=== PATIENT | female | born 1980 | race Caucasian/White ===

== ENCOUNTER 2020-11-30 09:06 | Outpatient (CLI) | payer OTHER ==
[2020-11-30 10:10] LABS: ALBUMIN 4.4 g/dL (3.2-5.5); ALBUMIN/GLOBULIN RATIO 1.6 (1.0-2.2); ALKALINE PHOSPHATASE 46 IU/L (42-121); ALT ALANINE AMINOTRANSFERASE 17 IU/L (10-60); AST ASPARTATE AMINOTRANSFERASE 21 IU/L (10-42); BILIRUBIN,TOTAL 0.7 mg/dL (0.2-1.0); BUN - BLOOD UREA NITROGEN 13 mg/dL (6-20); CALCIUM 9.4 mg/dL (8.5-10.3); CARBON DIOXIDE - CO2 26 mmol/L (21-32); CHLORIDE 101 mmol/L (101-111); CHOL/HDL RATIO 2.4 (<4.4); CHOLESTEROL 189 mg/dL; CREATININE 0.6 mg/dL (0.4-1.0); GFR - MDRD 110 (>89); GLUCOSE 100 mg/dL (70-100); HDL CHOLESTEROL 79 mg/dL; POTASSIUM 3.7 mmol/L (3.5-5.0); SODIUM 137 mmol/L (135-145); TOTAL PROTEIN 7.2 g/dL (6.7-8.2); TRIGLYCERIDES 33 mg/dL
[2020-11-30 12:21] LABS: ESTIMATED AVERAGE GLUCOSE 97 mg/dL (70-100)
--- OUTSIDE RECORDS SUMMARY | 2020-12-06 00:34 | EXTERNAL MEDICAL SUMMARY RPT | Continuity of Care Document ---
:1980 Demographics Phone Unavailable Preferred Language Unknown Marital Status Unknown Mormon Affiliation Unknown Race Unknown Ethnic Group Unknown Author Organization [facility] Address [address] [id number] Phone Care Team Providers Name Role Phone Rosie ZHOU, Unavailable Unavailable RBOE, Lindsey Bain, Unavailable Unavailable Problems date description facility 20201113 Alcohol use All 20201113 Complete Metabolic Panel All 20201113 Diabetes mellitus screening All 20201113 Encounter for removal of intrauterine c ontraceptive device All 20201113 Encounter for screening for lipoid diso rders All 20201113 Encounter for screening for malignant n eoplasm of cervix All 20201113 LIPID PANEL All 20201113 Polyp of cervix All 20201113 Procedure carried out on subject All 20201113 Tobacco smoking status NHIS All 20201113 Tobacco use and exposure All 20201113 Alcohol intake All 20201113 Cholesterol screening All 20201113 Details of drug misuse behavior All 20201113 Encounter for screening for diabetes me llitus All 20201113 Encounter for screening for nutritional disorder All 20201113 Encounter for screening mammogram for m alignant neoplasm of All breast 20201113 Exercise All 20201113 Glycohemoglobin (A1C) All 20201113 Health-related behavior All 20201113 Mucous polyp of cervix All 20201113 Never smoker All 20201113 Other screening mammogram All 20201113 Polyp of cervix uteri All 20201113 Removal of intrauterine contraceptive d evice done All 20201113 Screening for diabetes mellitus All 20201113 Screening for lipoid disorders All 20201113 Screening for malignant neoplasm of cer vix All 20201113 Screening for malignant neoplasms of th e cervix All 20201113 Screening for other and unspecified end ocrine, nutritional, All metabolic, and immunity disorders 20201113 Screening mammography All 20201113 THIN PREP PAP with HPV 30+YRS OLD All 20201113 TISSUE EXAM BY PATHOLOGIST, Level IV A ll 20201113 VITAMIN D, 25-OH TOTAL, [place] All 20201128 Encounter for insertion of intrauterine contraceptive device All 20201128 Encounter for other preprocedural exami nation All 20201128 Insertion of intrauterine contraceptive device done All 20201128 Other specified preoperative examinatio n All 20201128 Pre-surgery evaluation All [id number] Unspecified vitamin D deficiency All [id number] VITAMIN D, 25-OH TOTAL, [place] All 69477484 Vitamin D deficiency All 86275763 Vitamin D deficiency, unspecified All Medications date description facility [id number] CALCIUM CITRATE-VITAMIN D TABS All [id number] CALCIUM CITRATE-VITAMIN D TABS All 44382910 CHOLECALCIFEROL All Procedures date description facility 67799112 IUD REMOVAL All date description facility [id number] THIN PREP PAP with HPV 30+YRS OLD All date description facility [id number] TISSUE EXAM BY PATHOLOGIST, Level IV A ll date description facility [id number] Complete Metabolic Panel All date description facility 15294611 IUD REMOVAL All date description facility [id number] LIPID PANEL All date description facility [id number] VITAMIN D, 25-OH TOTAL, [place] All date description facility 41900205 Glycohemoglobin (A1C) All date description facility 02444406 THIN PREP PAP with HPV 30+YRS OLD All date description facility [id number] TISSUE EXAM BY PATHOLOGIST, Level IV A ll date description facility 20201128 IUD INSERTION All date description facility 20201128 POC CHORIONIC GONADOTROPIN ASSAY All date description facility 20201128 IUD, Intrauterine Copper Contraceptive (Paragard T380A) All Results test status date ordered by attending specimen yonathan e Human_papilloma_virus_ unknown 40754617 unknown unknown unknown identified_in_Unspecifi ed_specimen General_categories_Int unknown 76235037 unknown unknown unknown erpretation_of_Cervical _or_vaginal_smear_or_sc raping_by_Cyto_stain Human_Papillomavirus_t unknown 17026901 unknown unknown unknown est_result Human_papilloma_virus_ unknown 72740749 unknown unknown unknown 16_18_31_33_35_45_51_52 _56_DNA_Presence_in_Cer vix_by_Probe vaginal_Pap_smear_resu unknown 33111593 unknown unknown unknown lts Human_papilloma_virus_ unknown 75141544 unknown unknown unknown 16_and_18_and_31_33_35_ 39_45_51_52_56_58_59_66 _68_DNA_Interpretation_ in_Cervix Human_papilloma_virus_ unknown 58412915 unknown unknown unknown identified_in_Unspecifi ed_specimen General_categories_Int unknown 15291332 unknown unknown unknown erpretation_of_Cervical _or_vaginal_smear_or_sc raping_by_Cyto_stain Human_Papillomavirus_t unknown 86319979 unknown unknown unknown est_result Human_papilloma_virus_ unknown 00847123 unknown unknown unknown 16_18_31_33_35_45_51_52 _56_DNA_Presence_in_Cer vix_by_Probe vaginal_Pap_smear_resu unknown 28560473 unknown unknown unknown lts Human_papilloma_virus_ unknown 46732723 unknown unknown unknown 16_and_18_and_31_33_35_ 39_45_51_52_56_58_59_66 _68_DNA_Interpretation_ in_Cervix Choriogonadotropin_pre unknown 50275401 unknown unknown unknown gnancy_test_Presence_in _Urine human_chorionic_gonado unknown 92441298 unknown unknown unknown tropin_urine_qualitativ e_urine_pregnancy_test_ HEMOGLOBIN_A1c_ unknown 98716827 unknown unknown unknown T unknown 92408543 unknown unknown unknown ALBUMIN_GLOBULIN_RATIO unknown 39304122 unknown unknown unknown T unknown 64950825 unknown unknown unknown T unknown 78979246 unknown unknown unknown ALKALINE_PHOSPHATASE unknown 82766987 unknown unknown un known ALT_ALANINE_AMINOTRANS unknown 13024898 unknown unknown unknown FERASE T unknown 54091824 unknown unknown unknown T unknown 67746575 unknown unknown unknown T unknown 62328067 unknown unknown unknown BILIRUBIN_TOTAL unknown 22018866 unknown unknown unknown T unknown 91669398 unknown unknown unknown T unknown 02747973 unknown unknown unknown CHOL_HDL_RATIO unknown 65584288 unknown unknown unknown T unknown 48717862 unknown unknown unknown T unknown 84507769 unknown unknown unknown T unknown 91548297 unknown unknown unknown T unknown 79403961 unknown unknown unknown T unknown 04246219 unknown unknown unknown ESTIMATED_AVERAGE_GLUC unknown 33199338 unknown unknown unknown OSE T unknown 81757158 unknown unknown unknown T unknown 88017466 unknown unknown unknown GFR_-_MDRD unknown 17747642 unknown unknown unknown T unknown 36838060 unknown unknown unknown T unknown 39585823 unknown unknown unknown T unknown 72925785 unknown unknown unknown T unknown 30678578 unknown unknown unknown T unknown 24753452 unknown unknown unknown T unknown 70260663 unknown unknown unknown T unknown 31774186 unknown unknown unknown T unknown 53666959 unknown unknown unknown T unknown 75308851 unknown unknown unknown calcium_serum unknown 35595408 unknown unknown unknown chloride_serum unknown 72608080 unknown unknown unknown cholesterol_serum unknown 48505486 unknown unknown unkno wn albumin_globulin_ratio unknown 29329934 unknown unknown unknown _serum sodium_serum unknown 48206415 unknown unknown unknown Alanine_aminotransfera unknown 90916162 unknown unknown unknown se_Enzymatic_activity_v olume_in_Serum_or_Plasm a Albumin_Mass_volume_in unknown 98982834 unknown unknown unknown _Serum_or_Plasma Albumin_Globulin_Mass_ unknown 84617754 unknown unknown unknown Ratio_in_Serum_or_Plasm a Alkaline_phosphatase_E unknown 43165498 unknown unknown unknown nzymatic_activity_volum e_in_Blood creatinine_serum unknown 88033323 unknown unknown unknow n Estimated_Average_Gluc unknown 05510653 unknown unknown unknown ose Anion_gap_4_in_Serum_o unknown 13778287 unknown unknown unknown r_Plasma Aspartate_aminotransfe unknown 38913978 unknown unknown unknown rase_Enzymatic_activity _volume_in_Serum_or_Pla sma Bilirubin.total_Mass_v unknown 48643051 unknown unknown unknown olume_in_Serum_or_Plasm a albumin_serum unknown 08078579 unknown unknown unknown Calcium_Moles_volume_i unknown 83888551 unknown unknown unknown n_Serum_or_Plasma carbon_dioxide_serum_t unknown 10852613 unknown unknown unknown otal Chloride_Moles_volume_ unknown 98759828 unknown unknown unknown in_Serum_or_Plasma Cholesterol_in_HDL_Mas unknown 35541519 unknown unknown unknown s_volume_in_Serum_or_Pl asma_-_mg_dL Cholesterol_Mass_volum unknown 29457946 unknown unknown unknown e_in_Serum_or_Plasma_-_ mg_dL cholesterol_HDL_ratio_ unknown 22496330 unknown unknown unknown serum_percent Creatinine_Mass_volume unknown 69511739 unknown unknown unknown _in_Serum_or_Plasma Globulin_Mass_volume_i unknown 84253902 unknown unknown unknown n_Serum Glucose_Mass_volume_in unknown 10110713 unknown unknown unknown _Serum_or_Plasma cholesterol_HDL_ratio_ unknown 92554897 unknown unknown unknown serum_percent Triglyceride_Mass_volu unknown 03506181 unknown unknown unknown me_in_Serum_or_Plasma_- _mg_dL HDL_cholesterol_serum unknown 87649614 unknown unknown u nknown Glucose_mean_value_Mas unknown 28765808 unknown unknown unknown s_volume_in_Blood_Estim ated_from_glycated_hemo globin anion_gap_serum unknown 39224171 unknown unknown unknown hemoglobin_A1C_blood_a unknown 47046533 unknown unknown unknown s_of_total_hemoglobin Protein_Mass_volume_in unknown 79037169 unknown unknown unknown _Serum_or_Plasma Sodium_Moles_volume_in unknown 33161988 unknown unknown unknown _Serum_or_Plasma alkaline_phosphatase_s unknown 18480028 unknown unknown unknown court globulin_serum unknown 70968150 unknown unknown unknown Urea_nitrogen_Mass_vol unknown 33747162 unknown unknown unknown ume_in_Serum_or_Plasma potassium_blood unknown 67092067 unknown unknown unknown blood_glucose unknown 58415383 unknown unknown unknown protein_total_serum unknown 96757102 unknown unknown unk nown aspartate_aminotransfe unknown 73466404 unknown unknown unknown rase_SGOT_serum carbon_dioxide_serum_t unknown 99866507 unknown unknown unknown otal alanine_aminotransfera unknown 68939547 unknown unknown unknown se_SGPT_serum bilirubin_serum_total unknown 23581434 unknown unknown u nknown triglyceride_serum_fas unknown 75726333 unknown unknown unknown ting Hemoglobin_A1c_Hemoglo unknown 62604577 unknown unknown unknown bin_total_in_Blood_-_ Glomerular_filtration_ unknown 26635054 unknown unknown unknown rate_1.73_sq_M.predicte d_among_non-blacks_Volu me_Rate_Area_in_Serum_P lasma_or_Blood_by_Creat inine-based_formula_MDR D_ potassium_blood unknown 88880659 unknown unknown unknown Glomerular_Filtration_ unknown 19372871 unknown unknown unknown rate urea_nitrogen_blood unknown 01886943 unknown unknown unk nown facility observation status value reference units lab abnor mal line range code notes All Human_papill unknown negative unknown _81- unkn own unknown oma_virus_ide 9 ntified_in_Un specified_spe cimen All General_categ unknown normal unknown _- unknow n unknown ories_Interpr 4 etation_of_Ce rvical_or_vag inal_smear_or _scraping_by_ Cyto_stain All Human_Papill unknown negative unknown _ unkno wn unknown omavirus_test _result All Human_papillo unknown negative unknown _21440- unkn own unknown ma_virus_16_1 3 8_31_33_35_45 _51_52_56_DNA _Presence_in_ Cervix_by_Pro be All vaginal_Pap_ unknown normal unknown _73 unknown unknown smear_results All Human_papillo unknown negative unknown _77379- unkn own unknown ma_virus_16_a 6 nd_18_and_31_ 33_35_39_45_5 1_52_56_58_59 _66_68_DNA_In terpretation_ in_Cervix All Human_papill unknown negative unknown _81- unkn own unknown oma_virus_ide 9 ntified_in_Un specified_spe cimen All General_categ unknown normal unknown _- unknow n unknown ories_Interpr 4 etation_of_Ce rvical_or_vag inal_smear_or _scraping_by_ Cyto_stain All Human_Papill unknown negative unknown _ unkno wn unknown omavirus_test _result All Human_papillo unknown negative unknown _40- unkn own unknown ma_virus_16_1 3 8_31_33_35_45 _51_52_56_DNA _Presence_in_ Cervix_by_Pro be All vaginal_Pap_ unknown normal unknown _73 unknown unknown smear_results All Human_papillo unknown negative unknown _77379- unkn own unknown ma_virus_16_a 6 nd_18_and_31_ 33_35_39_45_5 1_52_56_58_59 _66_68_DNA_In terpretation_ in_Cervix All Choriogonado unknown Negative unknown _6-3 unkn own unknown tropin_pregna ncy_test_Pres ence_in_Urine All human_chorio unknown Negative unknown _2578 unkno wn unknown nic_gonadotro pin_urine_qua litative_urin e_pregnancy_t est_ All HEMOGLOBIN_A unknown 5.0 unknown % A1c unknown unknown 1c_ All T unknown 5.0 unknown % A1c_ unknown unkn own All ALBUMIN_GLOB unknown 1.6 unknown AGRATIO unknow n unknown ULIN_RATIO All T unknown 4.4 unknown g/dL ALB unknown unkn own All T unknown 46 unknown U/L ALK_PHO unknown unk nown S All ALKALINE_PHO unknown 46 unknown U/L ALP unknown unknown SPHATASE All ALT_ALANINE_ unknown 17 unknown U/L ALT unknown unknown AMINOTRANSFER ASE All T unknown 17 unknown U/L ALT_SGP unknown unk nown T_ All T unknown 21 unknown U/L AST unknown unkn own All T unknown 1.6 unknown A_G_RAT unknown unk nown IO All BILIRUBIN_TO unknown 0.7 unknown mg/dL BILIT unknown unknown KITA All T unknown 13 unknown mg/dL BUN unknown unkn own All T unknown 9.4 unknown mg/dL CA unknown unkn own All CHOL_HDL_RAT unknown 2.4 unknown CHLHDL unknown unknown IO All T unknown 189 unknown mg/dL CHOL unknown unkn own All T unknown 2.4 unknown CHOL_HD unknown unk nown L_RATIO All T unknown 101 unknown mmol/L CL unknown unkn own All T unknown 26 unknown mmol/L CO2 unknown unkn own All T unknown 0.6 unknown mg/dL CREAT unknown unkn own All ESTIMATED_AV unknown 97 unknown mg/dL EAG unknown unknown ERAGE_GLUCOSE All T unknown 97 unknown mg/dL EST.AVG unknown unk nown .GLUC All T unknown 10.0 unknown GAP unknown unkn own All GFR_-_MDRD unknown 110 unknown mL/min GFR unknown unknown All T unknown 110 unknown mL/min GFR_-_M unknown unk nown DRD All T unknown 2.8 unknown GLOB unknown unkn own All T unknown 100 unknown mg/dL GLU unknown unkn own All T unknown 79 unknown mg/dL HDL unknown unkn own All T unknown 3.7 unknown meq/L K unknown unkn own All T unknown 137 unknown mmol/L NA unknown unkn own All T unknown 7.2 unknown g/dL PRO_TOT unknown unk nown AL All T unknown 0.7 unknown mg/dL TOTAL_B unknown unk nown SHAUNA All T unknown 33 unknown mg/dL TRIG unknown unkn own All calcium_seru unknown 9.4 unknown mg/dL _11 unknown unknown m All chloride_ser unknown 101 unknown mmol/L _13 unknown unknown um All cholesterol_ unknown 189 unknown mg/dL _14 unknown unknown serum All albumin_glob unknown 1.6 unknown _146 unknown unknown ulin_ratio_se rum All sodium_serum unknown 137 unknown mmol/L _159 unknown unknown All Alanine_amin unknown 17 unknown U/L _1742-6 unknow n unknown otransferase_ Enzymatic_act ivity_volume_ in_Serum_or_P lasma All Albumin_Mass unknown 4.4 unknown g/dL _1751-7 unknow n unknown _volume_in_Se rum_or_Plasma All Albumin_Glob unknown 1.6 unknown _1759-0 unknow n unknown ulin_Mass_Rat io_in_Serum_o r_Plasma All Alkaline_pho unknown 46 unknown U/L _1783-0 unknow n unknown sphatase_Enzy matic_activit y_volume_in_B lood All creatinine_s unknown 0.6 unknown mg/dL _[address] All Estimated_Av unknown 97 unknown mg/dL _180195 unknow n unknown erage_Glucose All Anion_gap_4_ unknown 10.0 unknown _1863-0 unknow n unknown in_Serum_or_P lasma All Aspartate_am unknown 21 unknown U/L _1920-8 unknow n unknown inotransferas e_Enzymatic_a ctivity_volum e_in_Serum_or _Plasma All Bilirubin.to unknown 0.7 unknown mg/dL _1974- unknow n unknown tal_Mass_volu me_in_Serum_o r_Plasma All albumin_seru unknown 4.4 unknown g/dL _2 unknown unknown m All Calcium_Mole unknown 9.4 unknown mg/dL _1999- unknow n unknown s_volume_in_S erum_or_Plasm a All carbon_dioxi unknown 26 unknown mmol/L _2027- unknow n unknown de_serum_tota l All Chloride_Mol unknown 101 unknown mmol/L _2074-0 unknow n unknown es_volume_in_ Serum_or_Plas ma All Cholesterol_ unknown 79 unknown mg/dL _2084- unknow n unknown in_HDL_Mass_v olume_in_Seru m_or_Plasma_- _mg_dL All Cholesterol_ unknown 189 unknown mg/dL _2092- unknow n unknown Mass_volume_i n_Serum_or_Pl asma_-_mg_dL All cholesterol_ unknown 2.4 unknown _2094- unknow n unknown HDL_ratio_ser um_percent All Creatinine_M unknown 0.6 unknown mg/dL _2160-0 unknow n unknown ass_volume_in _Serum_or_Pla sma All Globulin_Mas unknown 2.8 unknown _2336-6 unknow n unknown s_volume_in_S court All Glucose_Mass unknown 100 unknown mg/dL _2345-7 unknow n unknown _volume_in_Se rum_or_Plasma All cholesterol_ unknown 2.4 unknown _2404 unknown unknown HDL_ratio_ser um_percent All Triglyceride unknown 33 unknown mg/dL _2571-8 unknow n unknown _Mass_volume_ in_Serum_or_P lasma_-_mg_dL All HDL_choleste unknown 79 unknown mg/dL _26 unknown unknown rol_serum All Glucose_mean unknown 97 unknown mg/dL _27353- unknow n unknown _value_Mass_v 2 olume_in_Bloo d_Estimated_f rom_glycated_ hemoglobin All anion_gap_se unknown 10.0 unknown _279 unknown unknown rum All hemoglobin_A unknown 5.0 unknown % _28 unknown unknown 1C_blood_as_o f_total_hemog lobin All Protein_Mass unknown 7.2 unknown g/dL _2885-2 unknow n unknown _volume_in_Se rum_or_Plasma All Sodium_Moles unknown 137 unknown mmol/L _2951-2 unknow n unknown _volume_in_Se rum_or_Plasma All alkaline_pho unknown 46 unknown U/L _3 unknown unknown sphatase_seru m All globulin_ser unknown 2.8 unknown _3059 unknown unknown um All Urea_nitroge unknown 13 unknown mg/dL _3094-0 unknow n unknown n_Mass_volume _in_Serum_or_ Plasma All potassium_bl unknown 3.7 unknown meq/L _3483 unknown unknown ood All blood_glucos unknown 100 unknown mg/dL _3565 unknown unknown e All protein_tota unknown 7.2 unknown g/dL _36 unknown unknown l_serum All aspartate_am unknown 21 unknown U/L _39 unknown unknown inotransferas e_SGOT_serum All carbon_dioxi unknown 26 unknown mmol/L _3962 unknown unknown de_serum_tota l All alanine_amin unknown 17 unknown U/L _40 unknown unknown otransferase_ SGPT_serum All bilirubin_se unknown 0.7 unknown mg/dL _43 unknown unknown rum_total All triglyceride unknown 33 unknown mg/dL _44 unknown unknown _serum_fastin g All Hemoglobin_A unknown 5.0 unknown % _4548-4 unknow n unknown 1c_Hemoglobin _total_in_Blo od_-_ All Glomerular_fi unknown 110 unknown mL/min _48642- unknow n unknown ltration_rate 3 _1.73_sq_M.pr edicted_among _non-blacks_V olume_Rate_Ar ea_in_Serum_P lasma_or_Bloo d_by_Creatini ne-based_form ula_MDRD_ All potassium_bl unknown 3.7 unknown meq/L _6298-4 unknow n unknown ood All Glomerular_F unknown 110 unknown mL/min _66455 unknown unknown iltration_rat e All urea_nitroge unknown 13 unknown mg/dL _9 unknown unknown n_blood Vital Signs date measurement value source 20201113 BMI 24.36 kg/m2 20201113 BP_diastolic 92 mm[Hg] 20201113 BP_systolic 141 mm[Hg] 20201113 height_metric 165.74 cm 20201113 height_standard 65.25 in 20201113 weight_metric 66.68 kg 20201113 weight_standard 147 lb 20201113 BMI 24.36 kg/m2 20201113 BP_diastolic 92 mm[Hg] 20201113 BP_systolic 141 mm[Hg] 20201113 height_metric 165.74 cm 20201113 height_standard 65.25 in 20201113 weight_metric 66.68 kg 20201113 weight_standard 147 lb date measurement value source 20201128 BMI 24.36 kg/m2 20201128 BP_diastolic 75 mm[Hg] 20201128 BP_systolic 129 mm[Hg] 20201128 height_metric 165.74 cm 20201128 height_standard 65.25 in 20201128 weight_metric 66.68 kg 20201128 weight_standard 147 lb Social History date description facility [id number]
== END 2020-11-30 09:07 | disposition home or self-care (01) ==
LOC: LAB 09:06
PROVIDERS: ATTEND Obstetrics & Gynecology
DX: Z13.1 Encounter for screening for diabetes mellitus (principal); Z13.220 Encounter for screening for lipoid disorders; Z13.21 Encounter for screening for nutritional disorder
CPT/HCPCS: 36415; 80053; 80061; 82306; 83036; 83721

== ENCOUNTER 2021-01-19 09:53 | Outpatient (CLI) | payer OTHER ==
--- NOTE | 2021-01-22 14:51 | Mammography Report ---
BILATERAL DIGITAL SCREENING MAMMOGRAM 3D/2D: 01/19/2021 CLINICAL: Baseline exam. Routine screening. No prior exams were available for comparison. The tissue of both breasts is heterogeneously dense. T his may lower the sensitivity of mammography. No significant masses, calcifications, or other findings are seen in either breast. IMPRESSION: NEGATIVE There is no mammographic evidence of malignancy. A 1 year screening mammogram is recommended. This exam was interpreted at Station ID: [id number]. NOTE: For mammograms, a report in lay terms will be sent to the patient. Approximately 15% of breast malignancies will not be visualized mammographically. In the management of a palpable breast mass, a negative mammogram must not discourage biopsy of a clinically suspicious lesion. Electronically Signed By: Kvng Ybarra acr/penrad:01/19/2021 17:10:39 ACR BI-RADS Category 1: Negative 3341F PARENCHYMAL PATTERN: (D) - The breast(s) demonstrate(s) heterogeneously dense fibroglandular parcharany ma. BI-RADS CATEGORY: (1) - 1 RECOMMENDATION: (ANNUAL) - Recommend routine annual screening mammography. 20220120 1 year screening LATERALITY: (B)
== END 2021-01-19 09:54 | disposition home or self-care (01) ==
LOC: DI 09:53
PROVIDERS: ATTEND Obstetrics & Gynecology
DX: Z12.31 Encounter for screening mammogram for malignant neoplasm of breast (principal)

== ENCOUNTER 2022-05-07 10:12 | Outpatient (CLI) | payer OTHER ==
--- NOTE | 2022-05-08 10:29 | Ultrasound Report ---
LIMITED ULTRASOUND OF LEFT BREAST: 05/07/2022 CLINICAL: Patient returns today to evaluate a focal asymmetry in the left breast. Comparison is made to exams dated: 05/07/2022 mammogram, 04/09/2022 mammogram, and 01/19/2021 mammogram - [facility]. Ultrasound of the left breast 11 o'clock region was performed. Spear scale images of the real-time e xamination were reviewed. No significant abnormalities were seen sonographically in the left breast. IMPRESSION: NEGATIVE There is no sonographic evidence of malignancy. There is no abnormality seen in the left breast to correspond with the mammography finding which is l ikely normal fibroglandular tissue. A 1 year screening mammogram is recommended. This exam was interpreted at Station ID: [id number]. Electronically Signed By: Norbert Verdugo M.D. lc/:05/07/2022 12:13:13 Ultrasound BI-RADS: 1 Negative BI-RADS CATEGORY: (1) - 1 RECOMMENDATION: (ANNUAL) - Recommend routine annual screening mammography. [id number] 1 year screening LATERALITY: (B)
--- NOTE | 2022-05-08 10:29 | Mammography Report ---
UNILATERAL LEFT DIGITAL DIAGNOSTIC MAMMOGRAM 3D/2D: 05/07/2022 CLINICAL: Patient returns today to evaluate a focal asymmetry in the left breast. Comparison is made to exams dated: 04/09/2022 mammogram and 01/19/2021 mammogram - [facility]. The left breast is heterogeneously dense, which may obscure small masses (category c / 51-75% glandu lar tissue). No significant masses, calcifications, or other findings are seen in the breast. IMPRESSION: INCOMPLETE: NEEDS ADDITIONAL IMAGING EVALUATION There is no abnormality seen in the left breast to correspond with the mammography finding which is l ikely normal fibroglandular tissue. This region is stable compared to December 2020 screening mammogram. H owever, ultrasound is recommended. Based on the Tyrer Cuzick model (a risk assessment model) the patients lifetime risk is 12.2% and he r 10 year risk is 2.0%. According to the ACR, ACS, and NCCN guidelines, an annual breast MRI exam binu ng with mammogram is recommended if the patients lifetime risk is 20% or greater. This exam was interpreted at Station ID: [id number]. NOTE: For mammograms, a report in lay terms will be sent to the patient. Approximately 15% of breast malignancies will not be visualized mammographically. In the management of a palpable breast mass, a negative mammogram must not discourage biopsy of a clinically suspicious lesion. Electronically Signed By: Norbert Verdugo M.D. lc/:05/07/2022 12:09:35 ACR BI-RADS Category 0: Incomplete 3340F PARENCHYMAL PATTERN: (D) - The breast(s) demonstrate(s) heterogeneously dense fibroglandular cornell cabrera. BI-RADS CATEGORY: (0) - 0 Ultrasound 20220507 Immediate follow-up LATERALITY: (B)
== END 2022-05-07 10:13 | disposition home or self-care (01) ==
LOC: DI 10:12
PROVIDERS: ATTEND Nurse Practitioner
DX: R92.8 Other abnormal and inconclusive findings on diagnostic imaging of breast (principal)

== ENCOUNTER 2023-10-01 10:19 | Outpatient (CLI) | payer OTHER ==
--- NOTE | 2023-10-02 15:57 | Mammography Report ---
BILATERAL DIGITAL SCREENING MAMMOGRAM 3D/2D: 10/01/2023 CLINICAL: Routine screening. Comparison is made to exams dated: 05/07/2022 mammogram, 04/09/2022 mammogram, and 01/19/2021 mammogram - [facility]. Both breasts are heterogeneously dense, which may obscure small masses (category c / 51-75% glandular tissue). There is a possible new asymmetry in the right breast posterior depth medial region seen on the crani ocaudal view only. No other significant masses, calcifications, or other findings are seen in either breast. IMPRESSION: INCOMPLETE: NEEDS ADDITIONAL IMAGING EVALUATION The possible new asymmetry in the right breast is indeterminate. Additional views with possible ultr asound are recommended. Based on the Tyrer Cuzick model (a risk assessment model) the patient's lifetime risk is 12.2% and he r 10 year risk is 2.1%. According to the ACR, ACS, and NCCN guidelines, an annual breast MRI exam binu ng with mammogram is recommended if the patients lifetime risk is 20% or greater. This exam was interpreted at Station ID: [id number]. NOTE: For mammograms, a report in lay terms will be sent to the patient. Approximately 15% of breast malignancies will not be visualized mammographically. In the management of a palpable breast mass, a negative mammogram must not discourage biopsy of a clinically suspicious lesion. Electronically Signed By: Evan [email or web address]/[email or web address]:10/01/2023 18:20:05 ACR BI-RADS Category 0: Incomplete 3340F PARENCHYMAL PATTERN: (D) - The breast(s) demonstrate(s) heterogeneously dense fibroglandular parcharany ma. BI-RADS CATEGORY: (0) - 0 Mammo and [place] [id number] Immediate follow-up LATERALITY: (R)
== END 2023-10-01 10:20 | disposition home or self-care (01) ==
LOC: DI 10:19
DX: Z12.31 Encounter for screening mammogram for malignant neoplasm of breast (principal); R92.333 Mammographic heterogeneous density, bilateral breasts

== ENCOUNTER 2023-10-29 08:22 | Outpatient (CLI) | payer OTHER ==
--- NOTE | 2023-10-29 09:43 | Mammography Report ---
UNILATERAL RIGHT DIGITAL DIAGNOSTIC MAMMOGRAM 3D/2D WITH SPOT COMPRESSION: 10/29/2023 CLINICAL: Patient returns today to evaluate an asymmetry in the right breast. Comparison is made to exams dated: 05/07/2022 ultrasound, 04/09/2022 mammogram, and 01/19/2021 mammogram - [facility]. The right breast is heterogeneously dense, which may obscure small masses (category c / 51-75% glandu lar tissue). The asymmetry in the right breast middle depth medial region seen on the craniocaudal view only is no t seen in additional views. No other significant masses or calcifications are seen in the breast. IMPRESSION: BENIGN The asymmetry on screening mammogram likely represents superimposed breast tissue and is benign. There is no mammographic evidence of malignancy. Return to annual mammogram screening schedule is rec ommended. Based on the Tyrer Cuzick model (a risk assessment model) the patient's lifetime risk is 12.2% and he r 10 year risk is 2.1%. According to the ACR, ACS, and NCCN guidelines, an annual breast MRI exam binu ng with mammogram is recommended if the patient's lifetime risk is 20% or greater. This exam was interpreted at Station ID: [id number]. NOTE: For mammograms, a report in lay terms will be sent to the patient. Approximately 15% of breast malignancies will not be visualized mammographically. In the management of a palpable breast mass, a negative mammogram must not discourage biopsy of a clinically suspicious lesion. Electronically Signed By: Aurelia Vargas M.D. lk/:10/29/2023 08:44:56 ACR BI-RADS Category 2: Benign Finding(s) 3342F PARENCHYMAL PATTERN: (D) - The breast(s) demonstrate(s) heterogeneously dense fibroglandular parenchy ma. BI-RADS CATEGORY: (2) - 2 Mammogram [id number] return to screening LATERALITY: (B)
== END 2023-10-29 08:23 | disposition home or self-care (01) ==
LOC: DI 08:22
PROVIDERS: ATTEND Nurse Practitioner
DX: R92.8 Other abnormal and inconclusive findings on diagnostic imaging of breast (principal); R92.331 Mammographic heterogeneous density, right breast